=== PATIENT | female | born 1945 | race Hispanic/Latino ===

== ENCOUNTER 2020-04-11 12:38 | Emergency (ER) | payer OTHER ==
[~2020-04-11] VITALS: Ht 154.9 cm; Wt 76.2 kg
[2020-04-11 13:12] LABS: BASOPHILS # (AUTO) 0.1 (0.0-0.1); BASOPHILS % 0.6 % (0.0-1.0); EOSINOPHILS # (AUTO) 0.3 (0.0-0.4); EOSINOPHILS % 2.6 % (0.0-6.0); HEMATOCRIT 36.9 % (34.2-44.1); HEMOGLOBIN 11.9 g/dL (12.0-16.0); LYMPHOCYTES # (AUTO) 2.6 (1.0-3.2); LYMPHOCYTES % 23.6 % (18.0-39.1); MEAN CORPUSCULAR HEMOGLOBIN 31.7 pg (28-32); MEAN CORPUSCULAR HGB CONC 32.2 g/dL (31-35); MEAN CORPUSCULAR VOLUME 98.4 fL (81-99); MONOCYTES # (AUTO) 0.6 (0.2-0.8); MONOCYTES % 5.4 % (4.4-11.3); NEUTROPHILS # (AUTO) 7.5 (2.1-6.9); NEUTROPHILS % 67.4 % (38.7-80.0); PLATELET COUNT 248 x10e3/uL (140-360); RED BLOOD COUNT 3.75 x10e6/uL (3.6-5.1); RED CELL DISTRIBUTION WIDTH 14.7 % (11.7-14.4)
[2020-04-11 13:13] LABS: BILIRUBIN,URINE NEGATIVE (NEGATIVE); CLARITY,URINE CLOUDY (CLEAR); COLOR,URINE YELLOW (YELLOW); KETONES,URINE NEGATIVE (NEGATIVE); LEUKOCYTE ESTERASE ,URINE LARGE (NEGATIVE); NITRITE,URINE POSITIVE (NEGATIVE); PROTEIN,URINE DIPSTICK 1+ (NEGATIVE); URINE UROBILINOGEN 0.2 mg/dL (0.2 - 1)
[2020-04-11 13:22] LABS: BACTERIA,URINE MANY /HPF; EPITHELIAL CELLS,URINE FEW /LPF; MUCUS,URINE FEW (RARE); WBC,URINE (MAN) 21-50 /HPF (0-5)
[2020-04-11 13:27] LABS: INR 1.41
[2020-04-11 13:28] LABS: PARTIAL THROMBOPLASTIN TIME 29.3 seconds (23.8-35.5)
--- OUTSIDE RECORDS SUMMARY | 2020-04-11 13:31 | XMS REPORT | Continuity of Care Document ---
Author Author [facility] Organization [facility] Address [address] [place] [address] [address]. [address]. [address] [place] [address] Phone Unavailable Care Team Providers Care Escort Blind Name Role Phone Jenny MELTON, [facility] PCP Patricia MELTON, Haris Uribe Attphys Kristina Sawant MA Attphys Unavailable Payers Payer Name Policy Type Policy Number Effective Date Expiration Date S ourCount includes the [facility] HEALTHDEVOTED [id number] [id number] 2019 00:00:00 Daniel White Problems This patient has no known problems. Allergies, Adverse Reactions, Alerts Allergy Name Allergy Type Status Severity Reaction(s) Onset Date Inacti ve Date Treating Clinician Comments Source No Known Allergies DA Active U 2018-12-04 00:00:00 [facility] Family History Family Member Diagnosis Comments Start Date Stop Date Source Natural father Heart disease Daniel White Social History Social Habit Start Date Stop Date Quantity Comments Source Sex Assigned [facility] [place] [facility] Tobacco use and exposure 2019-07-27 00:00:00 2019-07-27 00:00:00 Shania vásquez used Daniel White Alcohol intake 2019-07-27 00:00:00 2019-07-27 00:00:00 Ex-drinker (fi nding) Daniel White Smoking Status Start Date Stop Date Source Never smoker Daniel moore Medications Ordered Medication Name Filled Medication Name Start Date Stop Da te Current Medication? Ordering Clinician Indication Dosage Frequency Signature (SIG) Comments Components Source UNABLE TO FIND 2019-07-27 08:19:16 Yes Neuro-peak -memory vitamin Daniel White UNABLE TO FIND 2019-07-27 08:19:16 Yes Ortig a Daniel White UNABLE TO FIND 2019-07-27 08:19:16 Yes Visio n proactive Daniel White POTASSIUM CITRATE ORAL 2019-07-27 08:19:16 Yes Take by mouth. Daniel White latanoprost (XALATAN) 0.005 % ophthalmic solution 2019-07-18 00:00:00 Yes Daniel almonte cefuroxime (CEFTIN) 250 MG tablet 2019-07-14 00:00:00 Yes 250mg Take 250 mg by mouth. Daniel White phenazopyridine (PYRIDIUM) 200 MG tablet 2019-06 00:00:00 2019-07-27 00:00:00 No TK 1 T PO TID AFTER MEALS FOR 5 DAYS Daniel White XARELTO 20 mg tablet 2019-07-12 00:00:00 Yes 20mg QD Take 20 mg by mouth daily. Daniel White losartan (COZAAR) 50 MG tablet 2019-06-07 00:00:00 Yes 50mg QD Take 50 mg by mouth daily. Daniel White atorvastatin (LIPITOR) 40 MG tablet 2019-05-05 00:00:00 Yes 40mg QD Take 40 mg by mouth daily. Daniel White Vital Signs Vital Name Observation Time Observation Value Comments Source Systolic blood pressure 2019-07-27 08:08:00 131 mm[Hg] Daniel White Diastolic blood pressure 2019-07-27 08:08:00 84 mm[Hg] Daniel White Heart rate 2019-07-27 08:08:00 71 /min Daniel White Body height 2019-07-27 08:08:00 154.9 cm Daniel White Body weight 2019-07-27 08:08:00 81.647 kg Daniel White BMI 2019-07-27 08:08:00 34.01 kg/m2 Daniel White Procedures Procedure Date / Time Performed Performing Clinician Sourc e XR KNEE 4+ VW RIGHT 2019-07-27 08:28:23 Rony Edmondson [place] ARTHROCENTESIS ASPIR&/INJ MAJOR JT/BURSA W/O 3 08:00:00 Barbie De La Rosa Plan of Care Planned Activity Planned Date Details Comments Source Future Scheduled Test 2019-12-25 00:00:00 INFLUENZA VACCINE [code = INFLUENZA VACCINE] [facility] Future Scheduled Test 2010 00:00:00 65+ PNEUMOCOCCAL V ACCINE (1 of 1 - PPSV23) [code = 65+ PNEUMOCOCCAL VACCINE (1 of 1 - PPSV23)] [facility] Future Scheduled Test 1995-09-12 00:00:00 BREAST CANCER SCRE ENING [code = BREAST CANCER SCREENING] [facility] Future Scheduled Test 1995-09-12 00:00:00 COLONOSCOPY SCREEN ING [code = COLONOSCOPY SCREENING] [facility] Future Scheduled Test 1995-09-12 00:00:00 SHINGLES VACCINES (#1) [code = SHINGLES VACCINES (#1)] [facility] Encounters Start Date/Time End Date/Time Encounter Type [facility] ID Source 2019-07-27 00:00:00 2019-07-27 00:00:00 Outpatient [facility] [id number] Daniel White 2019-07-27 00:00:00 2019-07-27 00:00:00 Outpatient R[facility]Y [facility] [id number] [facility] Results Test Description Test Time Test Comments Results Result Comments Source Large Joint Arthrocentesis: knee, R knee 2019-07-27 08:00:00 Rony Edmondson Jr., MD 07/27/2019 6:47 PMLarge Joint Arthrocentesis: knee, R kneeConsent given by: patientSite marked: site markedTimeout: Immediately prior to procedure a time out was called to verify the correct patient, procedure, equipment, manufacturing support engineer and site/side marked as required Supporting DocumentationIndications: pain Procedure DetailsPreparation: Patient was prepped and draped in the usual sterile fashionUltrasound guided: no Platelet Rich Plasma Used: no PRP Used Location: knee - R knee Right side:Needle size: 22 GApproach: anteromedialRight knee medications administered: 1 mL bupivacaine 0.25 % (2.5 mg/mL); 40 mg methylPREDNISolone acetate 40 mg/mLPatient tolerance: patient tolerated the procedure well with no immediate complications Daniel White BASIC METABOLIC PANEL 2018-12-07 17:09:00 Test Item SODIUM (test code = NA) 141 mEq/L 134-147 N POTASSIUM (test code = K) 3.9 mEq/L 3.4-5.0 N CHLORIDE (test code = CL) 108 mEq/L 100-108 N CARBON DIOXIDE (test code = CO2) 27 mEq/L 21-33 N ANION GAP (test code = GAP) 10 0-20 N GLUCOSE (test code = GLU) 103 mg/dL 70-110 N BLOOD UREA NITROGEN (test code = BUN) 10 mg/dL 7-18 N GLOMERULAR FILTRATION RATE (test code = GFR) 70.3 70-80 N Units of measure = ml/min/1.73 m2 CREATININE (test code = CREAT) 0.8 mg/dL 0.6-1.3 N CALCIUM (test code = CA) 8.5 mg/dL 8.0-10.5 N CBC W/AUTO [id number] 16:57:00* Test Item Value Reference Range Interpretation Comments WHITE BLOOD CELL (test code = WBC) 7.21 x10 3/uL 4.5-11.0 N RED BLOOD CELL (test code = RBC) 3.64 x10 6/uL 3.54-5.02 N HEMOGLOBIN (test code = HGB) 12.2 g/dL 11.0-15.0 N HEMATOCRIT (test code = HCT) 37.4 % 33.0-45.0 N MEAN CELL VOLUME (test code = MCV) 102.7 fL 81.0-99.0 H MEAN CELL HGB (test code = MCH) 33.5 pg 27.0-33.0 H MEAN CELL HGB CONCETRATION (test code = MCHC) 32.6 g/dL 33.0-37. 0 L RED CELL DISTRIBUTION WIDTH CV (test code = RDW) 13.7 % 11.5- 14.5 N RED CELL DISTRIBUTION WIDTH SD (test code = RDW-SD) 52.0 fL 37 .0-54.0 N PLATELET COUNT (test code = PLT) 236 x10 3/uL 150-400 N MEAN PLATELET VOLUME (test code = MPV) 10.7 fL 7.0-9.0 H NEUTROPHIL % (test code = NT%) 62.1 % 56.0-77.0 N IMMATURE GRANULOCYTE % (test code = IG%) 0.1 % 0.0-2.0 N LYMPHOCYTE % (test code = LY%) 29.7 % 14.0-32.0 N MONOCYTE % (test code = MO%) 6.2 % 4.8-9.0 N EOSINOPHIL % (test code = EO%) 1.2 % 0.3-3.7 N BASOPHIL % (test code = BA%) 0.7 % 0.0-2.0 N NUCLEATED RBC % (test code = NRBC%) 0.0 % 0-0 N NEUTROPHIL # (test code = NT#) 4.47 x10 3/uL 2.0-7.6 N IMMATURE GRANULOCYTE # (test code = IG#) 0.01 x10 3/uL 0.00-0.03 N LYMPHOCYTE # (test code = LY#) 2.14 x10 3/uL 1.0-3.8 N MONOCYTE # (test code = MO#) 0.45 x10 3/uL 0.1-0.8 N EOSINOPHIL # (test code = EO#) 0.09 x10 3/uL 0.0-0.2 N BASOPHIL # (test code = BA#) 0.05 x10 3/uL 0.0-0.2 N NUCLEATED RBC # (test code = NRBC#) 0.00 x10 3/uL 0.0-0.1 N MANUAL DIFF REQUIRED (test code = MDIFF) NO - DUP VEIN [id number] 11:16:00 Name: ALLISON PARMAR [facility] : 1945 Age/S: 73 / F [address] [place] [address] Unit #: [id number] Loc: [place] [address] Phys: Corey Batista MD Acct: [id number] Dis Date: Status: ADM IN PHONE #: [phone] Exam Date: 12/07/2018 1104 FAX #: [phone] Reason: PFO on TTE in a stroke patient to rule out DVT EXAMS: CPT CODE: [id number] DUP VEIN VLAD 31318 EXAMINATION: Bilateral lower extremity venous Doppler December 07, 2018.. CLINICAL HISTORY: PFO on TTE in stroke patient. To rule out DVT. COMPARISON: None FINDINGS: Sonographic evaluation of the bilateral lower extremities was performed from the common femoral vein through the popliteal vein using grayscale, color Doppler, and spectral analysis. The examination demonstrates normal compressibility, flow, respiratory variation, and response to augmentation throughout. Visualized posterior tibial veins in calves are patent. IMPRESSION: No sonographic evidence of deep venous thrombosis in either thigh. at 1116 Reported and signed by: Melchor Calzada M.D. CC: Corey Batista MD; Altagracia Sheth MD; Ramirez Duque MD Technologist: Josh Ricci RDMS(A)(OB) Trnscb Date/Time: 12/07/2018 (1116) [email or web address] Orig Print D/T: S: 12/07/2018 (1119) Probe: PAGE 1 Signed Report - MRI BRAIN W/O CONT 2018-12-05 15:09:00 FAX: Corey Batisat MD [phone] [place]: St: [facility] FAX: Altagracia Vu [phone] FAX: Ramirez Villarreal I [phone] Name: ALLISON PARMAR [facility] : 1945 Age/S: 73/F [address] [place] [address] Unit #: [id number] Loc: [address] [address] Phys: Corey Batista MD Acct: [id number] Dis Date: Status: ADM IN ONE #: [phone] Exam Date: 12/05/2018 1458 FAX #: [phone] Reason: Possible TIA. Speech difficulties EXAMS: CPT CODE: [id number] MR I BRAIN W/O CONT 20913 MRI brain with out contrast 12/05/2018 HISTORY: Possible transient ischemic attack , speech difficulty PROCEDURE: Multiplanar multisequence imaging o f the brain is performed without contrast Comparison is made to CT performed on 12/04/2018 FINDINGS: No acute intracranial hemo rrhage, midline shift, extra-axial fluid collection, or hydrocephalus is p resent. There is mild atrophy. There are mild areas of increased FLAIR s ignal in the cerebral white matter. The visualized mastoid air cells are clear. Bilateral maxillary mucosal thickening is noted. There is no air- fluid level in the visualized paranasal sinuses. There is no blooming art ifact on the heme sequence to suggest remote hemorrhage. Craniocervical junction and corpus callosum are within normal limits. On the DWI se quence, there is restricted diffusion involving the lateral left frontal l obe near the superior aspect of the sylvian fissure. Corresponding decrea sed ADC signal is noted. IMPRESSION: 1. Small area of a cute ischemia within the lateral left frontal lobe superior to sylvian f issure. 2. No acute intracranial hemorrhage. 3. Mild atrophy a nd mild chronic microvascular ischemic changes. SL: [id number] at 1508 R eported and signed by: Osmin Valenzuela M.D. CC: Corey Batista MD; Altagracia Sheth MD; Ramirez Duque MD Technologist: Precious Daly RT(MR)(CT) [facility] Date/Time/By: 12/05/2018 (1509) : By: [email or web address] Orig Print D/T: S: 12/05/2018 (8423) PAGE 1 Signed Report - MRA NECK W/O CONT 2018-12-05 15:06:00 FAX: Corey Batista MD [phone] [place]: St: ADM FAX: Altagracia Vu [phone] FAX: Ramirez Villarreal I [phone] Name: ALLISON PARMAR [facility] [place] : 1945 Age/S: 73/F [address] [place] [address] Blvd Unit #: [id number] Loc: [address] [place] [address] Phys: Corey Batista MD Acct: [id number] Dis Date: Status: ADM IN PH ONE #: [phone] Exam Date: 12/05/2018 1458 FAX #: [phone] Reason: Possible TIA. Speech difficulties EXAMS: CPT CODE: [id number] MR A NECK W/O CONT 88490 MRA neck witho ut contrast HISTORY: Transient ischemic attack, speech difficult y PROCEDURE: 3-D asuu-ww-kksohz MR angiography of the neck arter ies was without contrast. 3-D reconstructed images were performed. ICA stenosis indirectly reference the distal internal carotid diameter as the denominator for stenosis measurement, utilizing consensus panel criteria for PQRS code. (NASCET) FINDINGS: The bilateral common carotid arteries and internal carotid arteries have normal caliber. The bilateral vertebral arteries have antegrade flow and normal caliber. The left vertebral artery is dominant. IMPRESSION: No significant narrowing or stenosis within neck arteries identified. SL: [id number] at 1506 Reported and signed by: Osmin Valenzuela M.D. CC: Corey Batista MD; Altagracia Sheth MD; Ramirez Duque MD Technologist: Precious Daly RT(MR)(CT) Trnscrd Date/Time/By: 12/05/2018 (1506) : By: [email or web address] Orig Print D/T: S: 12/05/2018 (150) PAGE 1 Signed Report - MRA HEAD W/O [id number] 15:05:00 FAX: Corey Batista MD [phone] [place]: St: ADM FAX: Altagracia Vu [phone] FAX: Ramirez Villarreal I [phone] Name: ALLISON PARMAR [facility] [place] : 1945 Age/S: 73/F [address] [place] [address] Unit #: [id number] Loc: [address] [address] Phys: Corey Batista MD Acct: [id number] Dis Date: Status: ADM IN ONE #: [phone] Exam Date: 12/05/2018 9310 FAX #: [phone] Reason: Possible TIA. Speech difficulties EXAMS: CPT CODE: [id number] MR A HEAD W/O CONTRAST 11292 MRA head witho ut contrast 12/05/2018 HISTORY: Possible transient ischemic attack, speech difficulty PROCEDURE: 3-D mtxq-my-vgpyyb MR angiography of the [place] is performed without contrast. 3-D reconstruction i mages were performed Comparison is made to CT performed on FINDINGS: The distal left vertebral is dominant. Both ve rtebral arteries are tortuous. Basilar artery is tortuous. Bilateral posterior cerebral arteries have normal caliber. The distal internal c arotid arteries, middle cerebral arteries, and anterior cerebral arteries have normal caliber bilaterally. Anterior communicating artery is patent. The right A1 segment is hypoplastic which is a normal variant. IMPRESSION: No flow-limiting stenosis or aneurysm identified within [place]. SL: [id number] at 1506 Reported and signed by: Osmin Valenzuela M.D. CC: Corey Batista MD; Altagracia chamberlain MD; Ramirez Duqeu MD Technologist: RT Felicia(MR)(CT) Trnscrd Date/Time/By: 12/05/2018 (0551) : By: [email or web address] Orig Print D/T: S: 12/05/2018 (6939) PAGE 1 Signed Report HGBA1C%2018-12-05 13:15:00* Test Item Value Reference Range Interpretation Comments HGBA1C% (test code = HGBA1C%) 6.0 %A1C 4.8-6.0 N LIPID PROFILE (CORONARY RISK)2018-12-05 13:12:00* Test Item Value Reference Range Interpretation Comments TRIGLYCERIDES (test code = TRIG) 93 mg/dL 40-150 N CHOLESTEROL (test code = CHOL) 175 mg/dL <200 CHOLESTEROL/HDL RATIO (test code = CHOLHDL) 2.22 RATIO 3.27-4.44 L RISK ASSOCIATED WITH CHOL/HDL RATIOS: RISK MALE FEMALE1/2 AVERAGE 3.43 3.27AVERAGE 4.97 4.442X AVERAGE 9.55 7.053X AVERAGE 23.39 11.04 NOTE THAT THE REFERENCE VALUE IS RELATEDTO RISK LEVELS RECOMMENDED BY THE NATL.HEART, LUNG, AND BLOOD INST. HDL CHOLESTEROL (test code = HDL) 79.0 mg/dL 39-96 N LIPOPROTEIN LDL (test code = LDL) 91 mg/dL 0-100 N <100 [id number] NEAR OPTIMAL/ABOVE [id number] HIGH>XQ=436 VERY HIGH*Guidelines provided by the National Cholesterol EducationProgram Adult Treatment Panel III PROTHROMBIN [id number] 22:37:00* Test Item Value Reference Range Interpretation Comments PROTHROMBIN TIME PATIENT (test code = PTP) 11.1 SECONDS 9.3-12.9 N INTERNATIONAL NORMAL RATIO (test code = INR) 1.0 0.8-1.2 N TARGET INR BY INDICATION Indication INR1. Prophylaxis of venous thrombosis 2.0 - 3.0 (orthopedic surgery), Prophylaxis of venous thrombosis (other than high-risk surgery), Treatment of Deep Vein Thrombosis/Pulmonary Embolism, Prevention of systemic embolism - Tissue heart valves, Acute Myocardial Infarction (to prevent systemic embolism), Valvular heart disease, Atrial Fibrillation, Bileaflet mechanical valve in aortic position.2. Mechanical prosthetic valves (high risk), 2.5 - 3.5 Presence of Lupus Anticoagulant or Antiphospholipid Antibodies, Prevention of systemic embolism - Acute Myocardial Infarction (to prevent recurrent infarct). THROMBOPLASTIN TIME [id number] 22:37:00* Test Item Value Reference Range Interpretation Comments THROMBOPLASTIN TIME PARTIAL (test code = PTT) 27.9 Seconds 25.0-39. 5 N Therapeutic Range: 50.4 - 88.3 Seconds Effective 09/08/2018 URINALYSIS [id number] 22:32:00* Test Item Value Reference Range Interpretation Comments UA COLOR (test code = COLU) YELLOW YEL/STRAW UA APPEARANCE (test code = APPU) SL CLOUDY CLEAR UA GLUCOSE DIPSTICK (test code = DGLUU) NEGATIVE NEGATIVE UA BILIRUBIN DIPSTICK (test code = BILU) NEGATIVE NEGATIVE UA KETONE DIPSTICK (test code = KETU) NEGATIVE NEGATIVE UA SPECIFIC GRAVITY (test code = SGU) 1.013 1.005-1.030 N UA BLOOD DIPSTICK (test code = [place]) NEGATIVE NEGATIVE UA PH DIPSTICK (test code = BRENNA) 5.0 5.0-7.0 N UA PROTEIN DIPSTICK (test code = PROU) NEGATIVE NEGATIVE UA UROBILINIOGEN DIPSTICK (test code = URO) 0.2 mg/dL 0.2-1.0 UA NITRITE DIPSTICK (test code = MEENAKSHI) NEGATIVE NEGATIVE UA LEUKOCYTE ESTERASE DIPSTICK (test code = LEUU) 3+ NEGA TIVE A UA WBC (test code = WBCU) 21-50 WBC/HPF 0-3 A UA RBC (test code = RBCU) 4-10 RBC/HPF 0-3 UA BACTERIA (test code = BACU) TRACE /HPF NONE SEEN UA SQUAMOUS CELLS (test code = SQU) 0-5 /HPF NONE SEEN UA HYALINE CAST (test code = HYALU) >20 /LPF NONE SEEN UA MUCUS (test code = MUCU) 3+ /LPF NONE SEEN A COMMENTS: Clean CatchCBC W/O [id number] 22:26:00* Test Item Value Reference Range Interpretation Comments WHITE BLOOD CELL (test code = WBC) 6.64 x10 3/uL 4.5-11.0 N RED BLOOD CELL (test code = RBC) 3.99 x10 6/uL 3.54-5.02 N HEMOGLOBIN (test code = HGB) 13.1 g/dL 11.0-15.0 N HEMATOCRIT (test code = HCT) 39.8 % 33.0-45.0 N MEAN CELL VOLUME (test code = MCV) 99.7 fL 81.0-99.0 H MEAN CELL HGB (test code = MCH) 32.8 pg 27.0-33.0 N MEAN CELL HGB CONCETRATION (test code = MCHC) 32.9 g/dL 33.0-37. 0 L RED CELL DISTRIBUTION WIDTH CV (test code = RDW) 13.6 % 11.5- 14.5 N RED CELL DISTRIBUTION WIDTH SD (test code = RDW-SD) 50.2 fL 37 .0-54.0 N PLATELET COUNT (test code = PLT) 259 x10 3/uL 150-400 N MEAN PLATELET VOLUME (test code = MPV) 10.4 fL 7.0-9.0 H TROPONIN-I [id number] 22:14:00* Test Item Value Reference Range Interpretation Comments TROPONIN-I RAPID (test code = TROPIRAP) 0.00 ng/mL 0.00-0.08 N Performed by certified hot saw operator at [facility] Negative: <= 0.08 Positive: >= 0.09An elevated troponin value alone is not sufficient todiagnose a myocardial infarction. Rather, the patient sclinical presentation (history, physical exam) and ECGshould be used in conjunction with troponin in thediagnostic evaluation of suspected myocardial infarction. Aserial sampling protocol is recommended to facilitate the identification of temporal changes in troponin levels characteristic of AL. CHEMISTRY 8 [id number] 22:07:00* Test Item Value Reference Range Interpretation Comments ISTAT-SODIUM (test code = NAP) MMOL/L 134-147 ISTAT-POTASSIUM (test code = KP) MMOL/L 3.4-5.0 ISTAT-CHLORIDE (test code = CLP) MMOL/L 100-108 ISTAT CARBON DIOXIDE (test code = ISTAT-CO2) mmol/L 21-33 N ISTAT CALCIUM IONIZED (test code = ISTAT-LEONEL) MG/DL 1.12-1.3 2 ISTAT-GLUCOSE (test code = GLUP) MG/DL 70-110 H ISTAT-BUN (test code = BUNP) MG/DL 7-18 N BEDSIDE CREATININE (test code = CREATBED) MG/DL 0.6-1.3 N GLOMERULAR FILTRATION RATE POC (test code = GFRBED) 75 ML/MIN CHEMISTRY 8 [id number] 22:07:00* Test Item Value Reference Range Interpretation Comments ISTAT-SODIUM (test code = NAP) 140 MMOL/L 134-147 N ISTAT-POTASSIUM (test code = KP) 3.8 MMOL/L 3.4-5.0 N ISTAT-CHLORIDE (test code = CLP) 104 MMOL/L 100-108 N Performed by certified hot saw operator at [facility] ISTAT CARBON DIOXIDE (test code = ISTAT-CO2) 23.0 mmol/L 21-33 N ISTAT CALCIUM IONIZED (test code = ISTAT-LEONEL) 1.20 MG/DL 1.12-1.3 2 N ISTAT-GLUCOSE (test code = GLUP) 116 MG/DL 70-110 H ISTAT-BUN (test code = BUNP) 11 MG/DL 7-18 N BEDSIDE CREATININE (test code = CREATBED) 0.8 MG/DL 0.6-1.3 N GLOMERULAR FILTRATION RATE POC (test code = GFRBED) 75 ML/MIN - CT HEAD/BRAIN W/O [id number] 21:23:00 Name: ALLISON PARMAR [facility] : 1945 Age/S: 73 / F [address] [place] [address] Unit #: [id number] Loc: [place] [address] Phys: Alex Guzmán DO Acct: [id number] Dis Date: Status: REG ER PHONE #: [phone] Exam Date: 12/04/20182033 FAX #: [phone] Reason: slurred speech resolved EXAMS: CPT CODE: [id number] CT HEAD/BRAIN W/O CONT 60251 Clinical Indication: Slurred speech, resolved. Comparison: None TECHNIQUE: CT images were obtained from the foramen magnum to the vertex without the use of intravenous contrast on a multidetector CT. Coronal and sagittal reconstructions were obtained. CT imaging performed at this location utilizes radiation dose optimization techniques which include one or more of the following: - Automated exposure control -Adjustment of the mA and/or kV according to patient size -Use of iterative reconstruction technique CT Radiation Dose DLP 419.70 mGy-cm FINDINGS: BRAIN PARENCHYMA: There is generalized brain parenchymal atrophy related to the patient's age. Moderate nonspecific periventricular white matter disease changes are noted. Minimal atherosclerotic calcifications along the carotid siphons. Remote lacunar infarct in the left gangliocapsular region. There are no focal mass lesions on this noncontrast head CT. There is no mass effect, midline shift or edema. There are no intra-axial or extra-axial fluid collections, intraventricular or intraparenchymal hemorrhage. There is no noncontrast CT evidence of a subacute stroke. The pineal, sellar, brainstem, cerebellum and skull base regions appear unremarkable. VENTRICLES: The lateral ventricles, third and fourth ventricles appear unremarkable. The basilar cisterns are normal. ORBITS, MASTOIDS AND PARANASAL SINUSES: The visualized orbits and paranasal sinuses are unremarkable. The mastoid air cells are clear. SKULL: There are no calvarial abnormalities seen. If there is further concern for intracranial pathology or acute stroke, MRI of the brain may be performed for complete assessment. IMPRESSION: 1. Chr onic age-related and small vessel ischemic changes without mass, hemorrh age or subacute stroke. 2. Remote lacunar infarct in the left gangliocapsular region. PAGE 1 Signed Repo rt (CONTINUED) Name: ALLISON PARMAR [facility] : 1945 Age/S: 73 / F [address] [place] [address] Unit #: [id number] Loc: [place] [address] Phys: Alex Guzmán DO Acct: [id number] Dis Date: Status: REG ER PHONE #: [phone] Exam Date: 12/04/20182033 FAX #: [phone] Reason: slurred speech resolved EXAMS: CPT CODE: [id number] CT HEAD/BRAIN W/O CONT 83837 < Continued> SL: APATIL-H at 2122 Reported and signed by: Linnette Bustillos M.D. CC: Alex Guzmán DO Technologist:Firoella Chavez RT(R)(CT) CTDI: DLP: Trnscb Date/Time: 12/04/2018 (2122) [email or web address] Orig Print D/T: S: 12/04/2018 (2125) PAGE 2 Signed Report - XR CHEST 1 [id number] 20:47:00 FAX: Chalo Balderrama MD [phone] [place]: St: PRE Name: ALLISON FUENTES [facility] : [birth year] Age/S: 73/F [address] [place] [address] Blvd Unit #: [id number] Loc: [place] [address] Phys: Chalo Ceballos MD Acct: [id number] Dis Date: Status: PRE ER PHONE #: [phone] Exam Date: 12/04/20182037 FAX #: [phone] Reason: stroke EXAMS: CPT CODE: [id number] XR CHEST 1 V 07851 Clinical Indication: stroke Comparison: None FINDINGS: The frontal chest radiog raph shows normal lung volumes. No interstitial or airspace opacities are seen. No pleural effusions are present. No pneumothorax is seen. The heart is normal in size. The trachea is midline. There are no clinically significant osseous abnormalities noted. IMP RESSION: No chest radiographic evidence of acute cardiopulmonary disease . SL: LADY at 2046 Reported and signed by: Sony Ortiz M.D. CC: Chalo Ceballos MD Technologist: Chano Ludwig RT(R); Erika Portillo RT(R) Trnscrd Date/Time/By: 12/04/2018 (2046) : By: [email or web address] Orig Print D/T: S: 12/04/2018 (2050) PAGE 1 Signed Report
--- OUTSIDE RECORDS SUMMARY | 2020-04-11 13:31 | XMS REPORT | Clinical Summary ---
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 0 Active losartan (COZAAR) 50 MG Take 50 mg by 0 tablet mouth daily. 0 Active latanoprost (XALATAN) 0 0.005 % ophthalmic 0 solution Active atorvastatin (LIPITOR) 40 Take 40 mg by 0 04/25 MG tablet mouth daily. 9 Active cefuroxime (CEFTIN) 250 Take 250 mg 0 MG tablet by mouth. 0 Active UNABLE TO FIND Neuro-peak 0 -memory vitamin Active UNABLE TO FIND Ortiga 0 Active UNABLE TO FIND Vision 0 proactive Active POTASSIUM CITRATE ORAL Take by 0 mouth. 07/27/2019 Discontinued (Patient Report ed) phenazopyridine TK 1 T PO TID 0 (PYRIDIUM) 200 MG tablet AFTER MEALS 0 FOR 5 DAYS Active Problems Not on file Encounters Care Team Description Date Type Specialty Rony Gomez Jr., MD Primary osteoarthritis of right knee (Pr imary Dx); Chronic pain of right knee 07/27/2019 Office Visit Orthopedic Surgery Kristina Sawant MA Right knee pain, unspecified chronicity (Primary Dx) 07/21/2019 Orders Only Orthopedic Surgery Kristina Sawant MA Right knee pain, unspecified chronicity (Primary Dx) 07/16/2019 Orders Only Orthopedic Surgery after 04/11/2019 Surgical History Surgery Date Site/Laterality Comments JOINT REPLACEMENT Left Hip HYSTERECTOMY Medical History Medical History Date Comments Stroke (HCC) Heart disease Hypertension Hyperlipidemia Cataracts, bilateral UTI (urinary tract infection) Family History Medical History Relation Name Comments Heart disease Father Relation Name Status Comments Father Social History Date Tobacco Use Types Packs/Day Years Used Never Smoker Smokeless Tobacco: Never Used Drinks/Week oz/Week Comments Alcohol Use Not Currently Sex Assigned at Date Recorded Not on file Last Filed Vital Signs Reading Time Taken Comments Vital Sign 131/84 07/27/2019 8:08 AM [facility] Blood Pressure 71 07/27/2019 8:08 AM [employer]AMPLE [employer] Pulse - - Temperature - - Respiratory Rate - - Oxygen Saturation - - Inhaled Oxygen Concentration 81.6 kg (180 lb) 07/27/2019 8:08 AM HAND [employer]AMPLE MAK[facility] Weight 154.9 cm (5' 1") 07/27/2019 8:08 AM HAND SAMPLE MAK[facility] Height 34.01 07/27/2019 8:08 AM HAND SAMPLE MAKER Body Mass Index Plan of Treatment Health Maintenance Due Date Last Done Comments BREAST CANCER SCREENING 09/12/1995 COLONOSCOPY SCREENING 09/12/1995 SHINGLES VACCINES (#1) 09/12/1995 65+ PNEUMOCOCCAL VACCINE 2010 (1 of 1 - PPSV23) INFLUENZA VACCINE 12/25/2019 Procedures Comments Procedure Name Priority Date/Time Associated Diag nosis XR KNEE 4+ VW RIGHT Routine 07/27/2019 Right knee pain, 8:28 AM HAND SAMPLE MAKER unspecified chronicity PA ARTHROCENTESIS Routine 07/27/2019 Primary oste oarthritis of ASPIR&/INJ MAJOR JT/BURSA 8:00 AM HAND SAMPLE MAKER right knee W/O US after 04/11/2019 Results * XR Knee 4+ Vw Right (07/27/2019 8:28 AM HAND SAMPLE MAKER) Specimen Impressions Performed At severe arthritis visualized at the right knee, as a abdirahman. [facility] Fracture is not seen. Reduced bone mi neral density is suggested. Narrative Performed At [facility] Comparison films date: none FINDINGS: 4 FWB views were obtained of the right knee(s) demonstrate no fracture, dislocation. The alignment is mild varus right Tibio-femoral joints demonstrates severe reduction of joint space Medial . The patellofemoral joint shows moderate reduction of joint space. moderate osteophytes seen in M edial compartment(s). The bones otherwise appear moderately m ineralized. Osseous lesion(s) is not seen. Performing Organization Address City/State/ZIP Code P mack Number [facility] [id number] [place] [address] * Large Joint Arthrocentesis: knee, R knee (07/27/2019 8:00 AM HAND SAMPLE MAKER) Narrative Performed At Rony Gomez Jr., MD 07/26 6:47 PM Large Joint Arthrocentesis: knee, R kne e Consent given by: patient Site marked: site marked Timeout: Immediately prior to procedure a time out was called to verify the correct patient, procedure, equipme nt, sales support administrator and site/side marked as required Supporting Documentation Indications: pain Procedure Details Preparation: Patient was prepped and dr urrutia in the usual sterile fashion Ultrasound guided: no Platelet Rich Plasma Used: no PRP Use d Location: knee - R knee Right side: Needle size: 22 G Approach: anteromedial Right knee medications administered: 1 mL bupivacaine 0.25 % (2.5 mg/mL); 40 mg methylPREDNISolone acetate 40 mg/ mL Patient tolerance: patient tolerated th e procedure well with no immediate complications after 04/11/2019 Insurance Type Payer Benefit Subscriber ID Effective Phone Address Plan / Dates Group HMO DEVOTED HEALTH DEVOTED [id number] HEALTH resent Advance Directives For more information, please contact: [phone] 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
[2020-04-11 13:36] LABS: ALANINE AMINOTRANSFERASE 29 IU/L (0-55); ALBUMIN 4.2 g/dL (3.5-5.0); ALBUMIN/GLOBULIN RATIO 1.7 (0.8-2.0); ALKALINE PHOSPHATASE 84 IU/L (40-150); ANION GAP 10.9 mmol/L (8-16); BLOOD UREA NITROGEN 13 mg/dL (7-26); BUN/CREATININE RATIO 15 (6-25); CALCIUM 9.1 mg/dL (8.4-10.2); CARBON DIOXIDE 25 mmol/L (22-29); CHLORIDE 108 mmol/L (98-107); CREATINE KINASE 73 IU/L (29-168); CREATININE, SERUM 0.84 mg/dL (0.57-1.11); EST GLOMERULAR FILTRATION RATE > 60 ML/MIN (60-); GLUCOSE 95 mg/dL (74-118); POTASSIUM 3.9 mmol/L (3.5-5.1); SODIUM 140 mmol/L (136-145)
--- NOTE | 2020-04-11 13:54 | Diagnostic Imaging Report ---
EXAM: CHEST SINGLE (PORTABLE) DATE: 04/11/2020 1:15 PM INDICATION: Chest pain COMPARISON: None FINDINGS: The trachea is midline. The lungs are symmetrically expanded without evidence for large focal consolidation, pneumothorax, or significant pleural effusion. The cardiomediastinal silhouette and pulmonary vasculature are within normal limits. No acute osseous abnormality is identified. The surrounding soft tissues are unremarkable. IMPRESSION: No acute cardiopulmonary process identified. Signed by: Dr. Zeyad Ramirez MD on 04/11/2020 1:51 PM
[2020-04-11] MEDS ORDERED: CEFTRIAXONE SOD 1 GM/NS 50 ML 50 ML IV ONE (14:15)
--- NOTE | 2020-04-11 14:33 | Emergency Department Note ---
History of Present Illnes History of Present Illness Chief Complaint: Chest Pain History of Present Illness This is a 74 year old female Chief Complaint Comment PATIENT IN FROM HOME WITH COMPLAINTS OF CHEST PAIN RADIATING DOWN LEFT ARM STARTING 2 HOURS AGO THAT HAS SINCE RESOLVED, PATIENT DENIES ANY PAIN AT THIS TIME. PATIENT COMPLAINING ABOUT light headedness briefly but has since resolved. Historian: Patient, Family Member Arrival Mode: Car Community Health Educator Required: No Onset (how long ago): hour(s) (2) Location: Chest Quality: sharp Radiation: Reports non-radiation Severity: mild Onset quality: sudden Duration (how long): hour(s) (5 minutes) Timing of current episode: rare Progression: resolved Chronicity: new Context: Denies recent illness, Denies recent surgery Relieving factors: none Exacerbating factors: none Associated symptoms: Reports denies other symptoms Treatments prior to arrival: none Past Medical/Family History Physician Review I have reviewed the patient's past medical and family history. Any updates have been documented here. 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" Past Surgical History: Hysterectomy, Hip Replacement Social History Smoking Cessation: Never Smoker Counseling Performed: No Alcohol Use: None Any Illegal Drug Use: No Physically hurt or threatened: No Other Any Pre-Existing Lines (PICC,: No Review of Systems Review of Systems Constitutional: Reports no symptoms EENTM: Reports no symptoms Cardiovascular: Reports no symptoms Respiratory: Reports no symptoms Gastrointestinal: Reports no symptoms Genitourinary: Reports no symptoms Musculoskeletal: Reports no symptoms Integumentary: Reports no symptoms Neurological: Reports no symptoms Psychological: Reports no symptoms Endocrine: Reports no symptoms Hematological/Lymphatic: Reports no symptoms Physical Exam Related Data Allergies: Coded Allergies: No Known Allergies (Unverified , 04/11/20) Triage Vital Signs Vital Signs Date Time Temp Pulse Resp B/P (MAP) Pulse Ox O2 Delivery O2 Flow Rate FiO2 04/11/20 12:38 97.9 60 18 157/76 99 Room Air Vital signs reviewed: Yes Physical Exam CONSTITUTIONAL Constitutional: Present well-developed, Present well-nourished HENT HENT: Present normocephalic, Present atraumatic, Present oropharynx clear/moist, Present nose normal HENT L/R: Present left ext ear normal, Present right ext ear normal EYES Eyes: Reports PERRL, Reports conjunctivae normal NECK Neck: Present ROM normal PULMONARY Pulmonary: Present effort normal, Present breath sounds normal CARDIOVASCULAR Cardiovascular: Present regular rhythm, Present heart sounds normal, Present capillary refill normal, Present normal rate GASTROINTESTINAL Abdominal: Present soft, Present nontender, Present bowel sounds normal GENITOURINARY Genitourinary: Present exam deferred SKIN Skin: Present warm, Present dry MUSCULOSKELETAL Musculoskeletal: Present ROM normal NEUROLOGICAL Neurological: Present alert, Present oriented x 3, Present no gross motor or sensory deficits PSYCHOLOGICAL Psychological: Present mood/affect normal, Present judgement normal Results Laboratory Result Diagram: 04/11/20 1250 04/11/20 1250 Laboratory Laboratory Tests Test 04/11/20 12:50 White Blood Count 11.13 x10e3/uL (4.8-10.8) Red Blood Count 3.75 x10e6/uL (3.6-5.1) Hemoglobin 11.9 g/dL (12.0-16.0) Hematocrit 36.9 % (34.2-44.1) Mean Corpuscular Volume 98.4 fL (81-99) Mean Corpuscular Hemoglobin 31.7 pg (28-32) Mean Corpuscular Hemoglobin Concent 32.2 g/dL (31-35) Red Cell Distribution Width 14.7 % (11.7-14.4) Platelet Count 248 x10e3/uL (140-360) Neutrophils (%) (Auto) 67.4 % (38.7-80.0) Lymphocytes (%) (Auto) 23.6 % (18.0-39.1) Monocytes (%) (Auto) 5.4 % (4.4-11.3) Eosinophils (%) (Auto) 2.6 % (0.0-6.0) Basophils (%) (Auto) 0.6 % (0.0-1.0) Neutrophils # (Auto) 7.5 (2.1-6.9) Lymphocytes # (Auto) 2.6 (1.0-3.2) Monocytes # (Auto) 0.6 (0.2-0.8) Eosinophils # (Auto) 0.3 (0.0-0.4) Basophils # (Auto) 0.1 (0.0-0.1) Absolute Immature Granulocyte (auto 0.05 x10e3/uL (0-0.1) Prothrombin Time 18.0 seconds (11.9-14.5) Prothromb Time International Ratio 1.41 Activated Partial Thromboplast Time 29.3 seconds (23.8-35.5) Urine Color Yellow (YELLOW) Urine Clarity Cloudy (CLEAR) Urine pH 5.5 (5 - 7) Urine Specific [place] 1.025 (1.010-1.025) Urine Protein 1+ (NEGATIVE) Urine Glucose (UA) Negative (NEGATIVE) Urine Ketones Negative (NEGATIVE) Urine Blood Moderate (NEGATIVE) Urine Nitrite Positive (NEGATIVE) Urine Bilirubin Negative (NEGATIVE) Urine Urobilinogen 0.2 mg/dL (0.2 - 1) Urine Leukocyte Esterase Large (NEGATIVE) Urine RBC 11-20 /HPF (0-5) Urine WBC 21-50 /HPF (0-5) Urine Epithelial Cells Few /LPF (NONE) Urine Bacteria Many /HPF (NONE) Urine Mucus Few (RARE) Sodium Level 140 mmol/L (136-145) Potassium Level 3.9 mmol/L (3.5-5.1) Chloride Level 108 mmol/L (98-107) Carbon Dioxide Level 25 mmol/L (22-29) Anion Gap 10.9 mmol/L (8-16) Blood Urea Nitrogen 13 mg/dL (7-26) Creatinine 0.84 mg/dL (0.57-1.11) Estimat Glomerular Filtration Rate > 60 ML/MIN (60-) BUN/Creatinine Ratio 15 (6-25) Glucose Level 95 mg/dL (74-118) Calcium Level 9.1 mg/dL (8.4-10.2) Total Bilirubin 1.3 mg/dL (0.2-1.2) Aspartate Amino Transf (AST/SGOT) 37 IU/L (5-34) Alanine Aminotransferase (ALT/SGPT) 29 IU/L (0-55) Alkaline Phosphatase 84 IU/L (40-150) Creatine Kinase 73 IU/L (29-168) Creatine Kinase MB 1.10 ng/mL (0-5.0) Troponin I < 0.001 ng/mL (0-0.300) B-Type Natriuretic Peptide 125.3 pg/mL (0-100) Total Protein 6.7 g/dL (6.5-8.1) Albumin 4.2 g/dL (3.5-5.0) Globulin 2.5 g/dL (2.3-3.5) Albumin/Globulin Ratio 1.7 (0.8-2.0) Lab results reviewed: Yes Imaging Imaging results reviewed: Yes Procedures 12 Lead ECG Interpretation ECG Interpretation : Community Health Educator: Interpreted by ED physician Date: Apr 11, 2020 Rhythm: sinus rhythm Rate: normal QRS axis: normal ST segments normal: Yes T waves normal: Yes Clinical Impression: normal ECG Assessment & Plan Medical Decision Making MDM 74 y.o F presents for brief episode of CP which has since resolved. happened a few hours ago. No history of ACS. Initial diff includes Acs VS PNA vs MSK pain among others. Doubt PE. Delta trop negative. EKG benign. Doubt ACS at this time but patient heart score 4. Offered admission but patient prefers to seek outpatient management. Instructed to f/u w/ Dr. Lorne NICOLE. Appropriate for DC. Assessment & Plan Final Impression: (1) Chest pain Depart Disposition: HOME, SELF-CARE Last Vital Signs Date Time Temp Pulse Resp B/P (MAP) Pulse Ox O2 Delivery O2 Flow Rate FiO2 04/11/20 14:28 55 20 163/80 99 Room Air 04/11/20 12:38 97.9 Medications in the ED Ceftriaxone Sodium 50 ml @ 100 mls/hr ONCE ONCE IV Last administered on 04/11/20at 14:21; Admin Dose 100 MLS/HR; Start 04/11/20 at 14:15; Stop 04/11/20 at 14:44 PAUL UMANZOR MD Apr 11, 2020 14:33
== END 2020-04-11 17:12 | disposition home or self-care (01) ==
LOC: ER 12:56
DX: R07.9 Chest pain, unspecified (principal); I10 Essential (primary) hypertension; F03.90 Unspecified dementia, unspecified severity, without behavioral disturbance, psychotic disturbance, mood disturbance, and anxiety; E78.5 Hyperlipidemia, unspecified; F32.9 Major depressive disorder, single episode, unspecified; Z86.73 Personal history of transient ischemic attack (TIA), and cerebral infarction without residual deficits
CPT/HCPCS: 36415; 71045; 80053; 81001; 82550; 82553; 83880; 84484; 85025; 85610; 85730; 87086; 87186; 93005; 99283; J0696

== ENCOUNTER 2020-08-24 10:20 | Emergency (ER) | payer OTHER ==
[~2020-08-24] VITALS: Ht 154.9 cm; Wt 76.2 kg
[2020-08-24 11:03] LABS: BASOPHILS # (AUTO) 0.1 (0.0-0.1); BASOPHILS % 0.8 % (0.0-1.0); EOSINOPHILS # (AUTO) 0.3 (0.0-0.4); EOSINOPHILS % 4.4 % (0.0-6.0); HEMATOCRIT 36.6 % (34.2-44.1); HEMOGLOBIN 12.1 g/dL (12.0-16.0); LYMPHOCYTES # (AUTO) 2.8 (1.0-3.2); LYMPHOCYTES % 43.8 % (18.0-39.1); MEAN CORPUSCULAR HGB CONC 33.1 g/dL (31-35); MEAN CORPUSCULAR VOLUME 99.7 fL (81-99); MONOCYTES # (AUTO) 0.4 (0.2-0.8); MONOCYTES % 6.8 % (4.4-11.3); NEUTROPHILS # (AUTO) 2.8 (2.1-6.9); NEUTROPHILS % 43.9 % (38.7-80.0); PLATELET COUNT 221 x10e3/uL (140-360); RED BLOOD COUNT 3.67 x10e6/uL (3.6-5.1); RED CELL DISTRIBUTION WIDTH 13.6 % (11.7-14.4)
[2020-08-24 11:29] LABS: ALANINE AMINOTRANSFERASE 20 IU/L (0-55); ALBUMIN 3.9 g/dL (3.5-5.0); ALBUMIN/GLOBULIN RATIO 1.6 (0.8-2.0); ALKALINE PHOSPHATASE 80 IU/L (40-150); ANION GAP 11.9 mmol/L (8-16); BLOOD UREA NITROGEN 18 mg/dL (7-26); BUN/CREATININE RATIO 21 (6-25); CALCIUM 8.9 mg/dL (8.4-10.2); CARBON DIOXIDE 26 mmol/L (22-29); CHLORIDE 107 mmol/L (98-107); CREATINE KINASE 86 IU/L (29-168); CREATININE, SERUM 0.87 mg/dL (0.57-1.11); EST GLOMERULAR FILTRATION RATE > 60 ML/MIN (60-); GLUCOSE 92 mg/dL (74-118); MAGNESIUM 1.8 MG/DL (1.3-2.1); POTASSIUM 3.9 mmol/L (3.5-5.1); SODIUM 141 mmol/L (136-145)
[2020-08-24 11:46] LABS: CLARITY,URINE SL CLOUDY (CLEAR); COLOR,URINE YELLOW (YELLOW); KETONES,URINE NEGATIVE (NEGATIVE); LEUKOCYTE ESTERASE ,URINE MODERATE (NEGATIVE); NITRITE,URINE NEGATIVE (NEGATIVE); PROTEIN,URINE DIPSTICK 2+ (NEGATIVE); URINE UROBILINOGEN 0.2 mg/dL (0.2 - 1)
[2020-08-24 12:01] LABS: WBC,URINE (MAN) 21-50 /HPF (0-5)
[2020-08-24 12:02] LABS: BACTERIA,URINE MODERATE /HPF
[2020-08-24] MEDS ORDERED: CEFTRIAXONE SOD 1 GM/50 ML BAG IV ONE (12:15)
[2020-08-24] MEDS ORDERED: SODIUM CHLORIDE 0.9% 50ML 50 ML ONE (12:38)
[2020-08-24] MEDS ORDERED: CEFTRIAXONE SOD 1 GM VIAL ONE (12:38)
[2020-08-24 13:02] VITALS: BP 142/73
== END 2020-08-24 13:09 | disposition home or self-care (01) ==
LOC: ER 10:59
DX: M79.18 Myalgia, other site (principal); I10 Essential (primary) hypertension; Z86.73 Personal history of transient ischemic attack (TIA), and cerebral infarction without residual deficits; Z82.49 Family history of ischemic heart disease and other diseases of the circulatory system; N39.0 Urinary tract infection, site not specified
CPT/HCPCS: 36415; 71045; 80053; 81001; 82550; 82553; 83735; 84484; 85025; 87086; 93005; 99283; J0696